=== PATIENT | male | born 1950 | race Caucasian/White ===

== ENCOUNTER 2018-10-23 04:31 | Emergency (ER) | payer MEDICARE, BC ==
--- NOTE | 2018-10-23 05:06 | EDM.PDOC ---
ED HPI GENERAL MEDICAL PROBLEM - General Chief Complaint: Gastrointestinal Problem Stated Complaint: COUGHING UP BLOOD Time Seen by Provider: 10/23/18 05:04 Source of Information: Reports: Patient History Limitations: Reports: No Limitations - History of Present Illness INITIAL COMMENTS - FREE TEXT/NARRATIVE: pt coughed up a small amount of blood. After arriving at the hosp it did have a very slight ooze from the nose. Onset: Today, Sudden Duration: Hour(s): Location: Reports: Face, Chest Associated Symptoms: Reports: No Other Symptoms Treatments PERFORMANCE REPORTER: Reports: Other (see below) Other Treatments PERFORMANCE REPORTER: unknown - Related Data Allergies Allergy/AdvReac Type Severity Reaction Status Date / Time Sulfa (Sulfonamide Allergy Nausea Verified 10/23/18 04:46 Antibiotics) Home Meds: Home Meds buPROPion [Wellbutrin XL] 150 mg PO DAILY 10/12/13 [History] Aspirin [[place] Aspirin] 81 mg PO DAILY 10/23/18 [History] Cetirizine [ZyrTEC] 10 mg PO DAILY 10/23/18 [History] Lisinopril 20 mg PO DAILY 10/23/18 [History] Mupirocin Oint [Bactroban Oint] 1 dose NASBOTH ASDIRECTED 10/23/18 [History] Omeprazole 20 mg PO DAILY 10/23/18 [History] Ticagrelor [Brilinta] 90 mg PO Q12H 10/23/18 [History] atorvaSTATin [Lipitor] 40 mg PO BEDTIME 10/23/18 [History] Past Medical History HEENT History: Reports: Cataract Cardiovascular History: Reports: High Cholesterol, [place], Stents - Infectious Disease History Infectious Disease History: Reports: Chicken Pox - Past Surgical History HEENT Surgical History: Reports: Cataract Surgery Musculoskeletal Surgical History: Reports: Hip Replacement Social & Family History - Tobacco Use Smoking Status *Q: Never Smoker - Caffeine Use Caffeine Use: Reports: Coffee - Recreational Drug Use Recreational Drug Use: No ED ROS GENERAL - Review of Systems Review Of Systems: See Below Constitutional: Reports: Other (pt did have a PA in June and had a stent. He was put on brilinta and he has had some nose bleed problems since that time. ) HEENT: Reports: No Symptoms Respiratory: Reports: Hemoptysis Cardiovascular: Reports: No Symptoms Endocrine: Reports: No Symptoms GI/Abdominal: Reports: No Symptoms : Reports: No Symptoms Musculoskeletal: Reports: No Symptoms Skin: Reports: No Symptoms Neurological: Reports: No Symptoms ED EXAM, GI/ABD - Physical Exam Exam: See Below Text/Narrative:: pt is a healthy appear pt who coughed up a small amount of blood. He was placed on brilinta in June after a stent. He has had some problem with nose bleeds since June. He did note a very slight amount of blood coming from the rt nare. Exam Limited By: No Limitations General Appearance: Alert, No Apparent Distress, Anxious Ears: Normal TMs Nose: Normal Inspection Throat/Mouth: Normal Inspection Head: Atraumatic Neck: Normal Inspection Respiratory/Chest: No Respiratory Distress Cardiovascular: Regular Rate, Rhythm GI/Abdominal Exam: Soft, Non-Tender (Male) Exam: Deferred Rectal (Males) Exam: Deferred Back Exam: Normal Inspection Extremities: Normal Inspection Neurological: Alert, Oriented, Normal Cognition Psychiatric: Tearful Course - Vital Signs Last Recorded V/S: Last Vital Signs Temp 36.0 C 10/23/18 04:44 Pulse 62 10/23/18 04:44 Resp 14 10/23/18 04:44 BP 134/75 10/23/18 04:44 Pulse Ox 97 10/23/18 04:44 - Orders/Labs/Meds Orders: Active Orders 24 hr Category Date Time Status UA W/MICROSCOPIC [URIN] Urgent Lab 10/23/18 04:56 Ordered Labs: Laboratory Tests 10/23/18 10/23/18 10/23/18 Range/Units 05:08 05:08 05:08 WBC 8.3 (4.5-11.0) K/uL RBC 4.85 (4.30-5.90) M/uL Hgb 12.7 (12.0-15.0) g/dL Hct 40.2 (40.0-54.0) % MCV 83 (80-98) fL MCH 26 L (27-31) pg MCHC 32 (32-36) % Plt Count 311 (150-400) K/uL Neut % (Auto) 58 (36-66) % Lymph % (Auto) 27 (24-44) % [place] % (Auto) 9 H (2-6) % Eos % (Auto) 6 H (2-4) % Baso % (Auto) 1 (0-1) % APTT 26.5 L (27.0-36.0) sec Sodium 142 (140-148) mmol/L Potassium 4.2 (3.6-5.2) mmol/L Chloride 105 (100-108) mmol/L Carbon Dioxide 27 (21-32) mmol/L Anion Gap 10.2 (5.0-14.0) mmol/L BUN 20 H (7-18) mg/dL Creatinine 1.2 (0.8-1.3) mg/dL Est Cr Clr Drug Dosing 64.73 mL/min Estimated GFR (MDRD) 60 (>60) Glucose 111 H (74-106) mg/dL Calcium 9.0 (8.5-10.1) mg/dL Total Bilirubin 0.4 (0.2-1.0) mg/dL AST 26 (15-37) U/L ALT 14 (12-78) U/L Alkaline Phosphatase 81 (46-116) U/L Total Protein 7.4 (6.4-8.2) g/dL Albumin 3.5 (3.4-5.0) g/dL Globulin 3.9 H (2.3-3.5) g/dL Albumin/Globulin Ratio 0.9 L (1.2-2.2) - Re-Assessments/Exams Free Text/Narrative Re-Assessment/Exam: 10/23/18 05:45 pt had normal lab work, wbc was normal. His chest xray did not reveal any infiltrate. He may have had a small amount of blood drip down his throat and then he coughed it up. Departure - Departure Time of Disposition: 05:40 Disposition: Home, Self-Care 01 Condition: Fair Clinical Impression: Bloody sputum - Discharge Information Referrals: PCP,None [Primary Care Provider] - Forms: ED Department Discharge Care Plan Goals: rtc if more sig bleeding, - My Orders Last 24 Hours: My Active Orders 10/23/18 04:56 UA W/MICROSCOPIC [URIN] Urgent - Assessment/Plan Last 24 Hours: My Active Orders 10/23/18 04:56 UA W/MICROSCOPIC [URIN] Urgent
--- NOTE | 2018-10-23 05:36 | CRLCR ---
INDICATION: Hemoptysis TECHNIQUE: Chest 2 views. COMPARISON: None FINDINGS: Cardiovascular and mediastinum: Heart size and vasculature are normal in caliber and appearance. Mediastinum is within normal limits. Calcified right paratracheal lymph node. Small hiatal hernia. Lungs and pleural spaces: Lungs are clear. No sign of infiltrate or mass. No sign of pleural effusion. No pneumothorax. Bones and soft tissues: No significant findings. IMPRESSION: No sign of acute disease. Dictated by Tere Howe MD @ Oct 23 2018 5:34AM Signed by Dr. Tere Howe @ Oct 23 2018 5:35AM
== END 2018-10-23 06:26 | disposition home or self-care (01) ==
LOC: JP.ED 04:31
DX: R04.2 Hemoptysis (principal); E78.00 Pure hypercholesterolemia, unspecified; I25.2 Old myocardial infarction; Z95.5 Presence of coronary angioplasty implant and graft; Z79.899 Other long term (current) drug therapy; Z79.82 Long term (current) use of aspirin; Z88.2 Allergy status to sulfonamides
CPT/HCPCS: 36415; 71046; 80053; 85025; 85730; 99282; 99283-25

== ENCOUNTER 2019-11-02 22:12 | Emergency (ER) | payer MEDICARE, BC ==
--- NOTE | 2019-11-02 22:53 | EDM.PDOC ---
ED HPI GENERAL MEDICAL PROBLEM - General Chief Complaint: Skin Complaint Stated Complaint: WOOD TICK EMBEDDED IN NECK Time Seen by Provider: 11/02/19 22:48 Source of Information: Reports: Patient - History of Present Illness INITIAL COMMENTS - FREE TEXT/NARRATIVE: Patient presents for concerns regarding possible imbedded tick in midline upper back. Patient just noticed today. He took a picture and sent to his whom was concerned, prompting ER visit. Patient has had an imbedded tick in the past and was concerned. - Related Data Allergies Allergy/AdvReac Type Severity Reaction Status Date / Time Sulfa (Sulfonamide Allergy Nausea Verified 10/23/18 04:46 Antibiotics) Home Meds: Home Meds buPROPion [Wellbutrin XL] 150 mg PO DAILY 10/12/13 [History] Aspirin [[place] Aspirin] 81 mg PO DAILY 10/23/18 [History] Cetirizine [ZyrTEC] 10 mg PO DAILY 10/23/18 [History] Lisinopril 20 mg PO DAILY 10/23/18 [History] Mupirocin Oint [Bactroban Oint] 1 dose NASBOTH ASDIRECTED 10/23/18 [History] Omeprazole 20 mg PO DAILY 10/23/18 [History] Ticagrelor [Brilinta] 90 mg PO Q12H 10/23/18 [History] atorvaSTATin [Lipitor] 40 mg PO BEDTIME 10/23/18 [History] Past Medical History HEENT History: Reports: Cataract Cardiovascular History: Reports: High Cholesterol, [place], Stents - Infectious Disease History Infectious Disease History: Reports: Chicken Pox - Past Surgical History HEENT Surgical History: Reports: Cataract Surgery Musculoskeletal Surgical History: Reports: Hip Replacement Social & Family History - Caffeine Use Caffeine Use: Reports: Coffee ED ROS GENERAL - Review of Systems Review Of Systems: Comprehensive ROS is negative, except as noted in HPI. ED EXAM, SKIN/RASH Exam: See Below Exam Limited By: No Limitations General Appearance: Alert, WD/WN, No Apparent Distress Nose: Normal Inspection Throat/Mouth: Normal Voice, No Airway Compromise Skin: Other (upper midline back: Dilated pore with large black head noted. Black head was expressed and showed to patient. Reassurance was offered) Course - Vital Signs Last Recorded V/S: Last Vital Signs Temp 35.8 C L 11/02/19 22:38 Pulse 62 11/02/19 22:38 Resp 16 11/02/19 22:38 BP 151/88 H 11/02/19 22:38 Pulse Ox 99 11/02/19 22:38 Departure - Departure Time of Disposition: 22:54 Disposition: Home, Self-Care 01 Clinical Impression: Black head - Discharge Information Referrals: PCP,None [Primary Care Provider] - Sepsis Event Note (ED) - Focused Exam Vital Signs: Vital Signs Temp Pulse Resp BP Pulse Ox 11/02/19 22:38 35.8 C L 62 16 151/88 H 99
== END 2019-11-02 23:02 | disposition home or self-care (01) ==
LOC: JP.ED 22:12
DX: L70.0 Acne vulgaris (principal); E78.00 Pure hypercholesterolemia, unspecified; I25.2 Old myocardial infarction; Z88.2 Allergy status to sulfonamides; Z79.899 Other long term (current) drug therapy; Z79.82 Long term (current) use of aspirin
CPT/HCPCS: 99283